=== PATIENT | female | born 2000 | race Caucasian/White ===

== ENCOUNTER 2021-12-05 19:40 | Emergency (ER) | payer OTHER ==
[2021-12-05 20:57] LABS: HEMOGLOBIN 13.7 gm/dl (12.3-15.3); RED BLOOD COUNT 4.35 M/UL (4.00-5.10); WHITE BLOOD COUNT 9.4 K/UL (4.5-11.0)
[2021-12-05 21:37] LABS: BUN/CREATININE RATIO 17 (0-10)
== END 2021-12-06 04:40 | disposition short-term general hospital (02) ==
LOC: ER1 19:40
PROVIDERS: Emergency Medicine
DX: S61.512A Laceration without foreign body of left wrist, initial encounter (principal); S61.511A Laceration without foreign body of right wrist, initial encounter; X78.9XXA Intentional self-harm by unspecified sharp object, initial encounter; Z20.822 Contact with and (suspected) exposure to COVID-19
CPT/HCPCS: 71045; 80053; 80307; 81001; 83735; 84484; 84703; 85025; 90471; 90715; 93005; 99285; G0480; U0002